=== PATIENT | male | born 1975 | race Caucasian/White ===

== ENCOUNTER → 2016-10-23 | Outpatient (CLI) | payer OTHER ==
--- NOTE | 2016-10-23 18:12 | Diagnostic Imaging Report ---
EXAMINATION: Supine view of the abdomen. INDICATION: Left flank pain. History of left ureteric stone. FINDINGS: There is a 6 mm calcification seen in the left flank lateral to the L4 transverse process. This is slightly lateral to the expected course of the left ureter but may correlate with a ureteric stone. No evidence of kidney or bladder or right ureteric stone on this exam. There are advanced degenerative changes in the left hip with a deformity of the left femoral head and neck, probably related to old injury or other insult. IMPRESSION: 1. A 6 mm calcification lateral to the L4 transverse process could be a left ureteric stone. 2. Severe degenerative changes in the left hip with a deformity of the left femur head and neck, suggestive of sequela of old insult such as an old injury, infection, or avascular necrosis. Dictated by: Dictated on workstation # [id number]
== END ==
LOC: RAD 14:34
PROVIDERS: ATTEND Urology
DX: R93.8 Abnormal findings on diagnostic imaging of other specified body structures (principal); M16.12 Unilateral primary osteoarthritis, left hip; R10.32 Left lower quadrant pain
CPT/HCPCS: 74000

== ENCOUNTER 2016-10-27 09:50 | Outpatient (CLI) | payer OTHER ==
[~2016-10-27] VITALS: Ht 180.3 cm; Wt 151.0 kg
[2016-10-27] MEDS ORDERED: OXYC-465 PO (09:57)
[2016-10-27] MEDS ORDERED: TRAM50TA2 PO (09:57)
[2016-10-27] MEDS ORDERED: RT-ALBUINH IH (09:57)
[2016-10-27] MEDS ORDERED: FLUT1BLS IH (09:57)
[2016-10-27] MEDS ORDERED: TAMS0.4C98 PO (09:57)
[2016-10-27] MEDS ORDERED: OMEP40CA36 PO (09:57)
== END 2016-10-27 10:08 ==
LOC: PREOP 09:50
PROVIDERS: ATTEND Urology
DX: Z01.818 Encounter for other preprocedural examination (principal); N20.1 Calculus of ureter

== ENCOUNTER 2016-10-29 06:41 | Day surgery (SDC) | payer BC, OTHER ==
[~2016-10-29] VITALS: Ht 180.3 cm; Wt 151.0 kg
[~2016-10-29 06:41] MED LIST: FLUT1BLS IH; OMEP40CA36 PO; OXYC-465 PO; RT-ALBUINH IH; TAMS0.4C98 PO; TRAM50TA2 PO
--- NOTE | 2016-10-29 07:07 | Progress Note-Pre Operative ---
Pre-Operative Progress Note H&P Reviewed The H&P was reviewed, patient examined and no changes noted. Date Seen by Provider: Oct 29, 2016 Time Seen by Provider: 07:07 Date H&P Reviewed: Oct 29, 2016 Time H&P Reviewed: 07:07 Pre-Operative Diagnosis: LT URETERAL STONE JULIANA AYALA MD Oct 29, 2016 7:07 am
[2016-10-29] MEDS ORDERED: cefTRIAXone 1 GM (ROCEPHIN) VIAL ONE (08:09)
[2016-10-29] MEDS ORDERED: NS (IVPB) 50 ML ONE (08:10)
--- NOTE | 2016-10-29 08:17 | Diagnostic Imaging Report ---
KUB. INDICATION: Left-sided stone. Findings: There is a 5 mm calcification at the level of the left L3 transverse process, possibly representing a proximal left ureteric stone. No other calcifications to suggest stones in the urinary tract seen otherwise. Advanced degenerative changes with deformity of the head and neck of the left femur and remodeling of the hip joint and acetabulum seen. IMPRESSION: 5 mm calcification at L3 level could be a left ureteric stone. Dictated by: Dictated on workstation # [id number]
[2016-10-29] MEDS: LACTATED RINGERS 1,000 ML IV PRN ×2 (08:35→11:37)
[2016-10-29 08:38] VITALS: BP 179/97
[2016-10-29] MEDS ORDERED: cefTRIAXone 1 GM/NS 50 ML IVPB IV ONE ×2 (09:15)
[2016-10-29] MEDS ORDERED: CATHETER FLUSH 10 ML SYR IV PRN (09:15)
[2016-10-29] MEDS ORDERED: proPOfol 200 MG/20 ML (DIPRIVAN) VIAL IV ONE (09:57)
[2016-10-29] MEDS ORDERED: MIDAZOLAM 2 MG/2 ML (VERSED) VIAL ONE (09:58)
[2016-10-29] MEDS ORDERED: LIDOCAINE PF 0.5% 50 ML (XYLOCAINE) VIAL ONE (09:58)
[2016-10-29] MEDS ORDERED: DEXAMETHASONE PF 10 MG/ML (DECADRON) VIAL ONE (09:58)
[2016-10-29] MEDS ORDERED: SEVOFLURANE (ULTANE) 15 ML INHAL SOLN ONE ×3 (09:58→11:18)
[2016-10-29] MEDS ORDERED: ONDANSETRON 4 MG/2 ML (SDV) Z0FRAN ONE (09:58)
[2016-10-29] MEDS ORDERED: LACTATED RINGERS 1,000 ML IV ONE (09:58)
[2016-10-29] MEDS ORDERED: fentaNYL INJECTION 100 MCG/2 ML AMP ONE (09:58)
--- NOTE | 2016-10-29 11:14 | Progress Note-Post Operative ---
Post-Operative Progess Note Surgeon (s)/Reed Worker (s) Surgeon JULIANA AYALA MD Reed Worker: N/A Pre-Operative Diagnosis LT URETERAL STONE Post-Operative Diagnosis SAME Procedure & Operative Findings Date of Procedure 10/29/16 Procedure Performed/Findings LT ESWL FOR LT PROXIMAL URETERAL STONE Anesthesia Type GENERAL Estimated Blood Loss Estimated blood loss (mL): N/A Specimens/Packing Specimens Removed N/A Packing: N/A JULIANA AYALA MD Oct 29, 2016 11:14 am
--- NOTE | 2016-10-29 11:16 | Discharge Inst-Urology ---
Discharge Inst-Urology Discharge Medications New, Converted, or Re-newed RX: RX on Chart Patient Instructions/Follow Up Plan Please make appointment to been seen in office in 2 weeks. KUB prior to it KUB on way home Post ESWL instructions Increase oral fluids for 48 hours and then as needed. Diet and Activity as tolerated. If questions or concerns contact your physician Or seek help at emergency department. JULIANA AYALA MD Oct 29, 2016 11:16 am
[2016-10-29] MEDS ORDERED: FUROSEMIDE 40 MG/4 ML INJ (LASIX) ONE (11:18)
[2016-10-29] MEDS ORDERED: ONDANSETRON 4 MG/2 ML (SDV) Z0FRAN IVP PRN (11:45)
[2016-10-29] MEDS ORDERED: morphine INJ 10 MG/ML 1ML (SYR OR VIAL) IVP PRN (11:45)
[2016-10-29 12:35] VITALS: BP 136/78
[2016-10-29] MEDS ORDERED: NITR-65 PO (12:52)
[2016-10-29] MEDS ORDERED: TAMS0.4C98 PO (12:52)
[2016-10-29] MEDS ORDERED: HYDR-3876 PO (12:52)
[2016-10-29 13:05] VITALS: BP 137/90
[2016-10-29 13:35] VITALS: BP 148/97
[2016-10-29 13:45] VITALS: BP 148/97
--- NOTE | 2016-10-29 13:55 | Diagnostic Imaging Report ---
INDICATION: Post lithotripsy. FINDINGS: The previously seen calcification in the left flank region is questionably seen on the current study at L3 level on the left side. This is projecting near interface of 2 bowel loops and vague density seen at the current exam could be artifactual. No other calcifications identified. Advanced degenerative changes and deformity in the left hip again noted. IMPRESSION: Faint density measuring 5 mm at the left L3 transverse process level is questioned to correlate with the previously suspected proximal left ureteric stone. It has overlying bowel and could be artifactual however. Dictated by: Dictated on workstation # [id number]
--- NOTE | 2016-10-30 11:12 | OPERATIVE REPORT ---
PROCEDURE PHYSICIAN: JULIANA AYALA DATE OF PROCEDURE: 10/29/2016 PREOPERATIVE DIAGNOSIS: Left proximal ureteral stone. POSTOPERATIVE DIAGNOSIS: Left proximal ureteral stone. OPERATION: Left ESWL. SURGEON: Dr. Ayala. ANESTHESIA: General. COMPLICATIONS: None. PROCEDURE: Under satisfactory general anesthesia, the patient supine position on the ESWL table, the left ureteral stone was localized of course with some difficulty because of the size of the patient and the size of the stone. However, it is well localized by fluoroscopy. Shocks were delivered KV of 6. A total of 2000 shocks, I was unable to see the stone anymore. Hopefully fragmented well. The patient received 30 mg of Toradol and 40 mg of Lasix at the end of the procedure. He tolerated the procedure and anesthesia well and was sent to recovery room in stable condition. Job ID: [id number] Dictated Date: 10/29/2016 11:27:25 [place] [employer]lower Date: 10/30/2016 10:52:39 / deepak
== END 2016-10-29 13:45 | disposition home or self-care (01) ==
LOC: SDC 06:41
PROVIDERS: ATTEND Urology
DX: N20.1 Calculus of ureter (principal); Z11.2 Encounter for screening for other bacterial diseases; J44.9 Chronic obstructive pulmonary disease, unspecified; F17.210 Nicotine dependence, cigarettes, uncomplicated; K21.9 Gastro-esophageal reflux disease without esophagitis; E66.01 Morbid (severe) obesity due to excess calories; Z68.42 Body mass index [BMI] 45.0-49.9, adult
CPT/HCPCS: 74000; 87081

== ENCOUNTER → 2016-11-12 | Outpatient (CLI) | payer OTHER ==
[~2016-11-12] MED LIST changes: +HYDR-3876 PO; +NITR-65 PO
--- NOTE | 2016-11-12 15:27 | Diagnostic Imaging Report ---
EXAMINATION: Supine view of the abdomen. INDICATION: Right ureteric stone. FINDINGS: When compared to 10/29/2016, the previously seen calcification in the left flank is not clearly identified. There is no definitive urinary tract stone seen at this time. An unremarkable bowel gas pattern is seen. IMPRESSION: No definite urinary tract stone is seen. Dictated by: Dictated on workstation # [id number]
== END ==
LOC: RAD 14:37
PROVIDERS: ATTEND Urology
DX: N20.1 Calculus of ureter (principal)
CPT/HCPCS: 74000

== ENCOUNTER → 2019-08-12 | Outpatient (CLI) | payer MEDICARE ==
[~2019-08-12] MED LIST changes: +OMEP40CA27 PO; -OMEP40CA36 PO; -TAMS0.4C98 PO; +TMSL.4C PO; -TRAM50TA2 PO; +TRM50T PO
[2019-08-12 07:59] LABS: HEMATOCRIT 52 % (40-54); HEMOGLOBIN 17.1 G/DL (13.3-17.7); MEAN CORPUSCULAR HEMOGLOBIN 30 PG (25-34); MEAN CORPUSCULAR HGB CONC 33 G/DL (32-36); MEAN CORPUSCULAR VOLUME 91 FL (80-99); WHITE BLOOD COUNT 8.8 10^3/uL (4.3-11.0)
[2019-08-12 08:00] LABS: BASOPHILS # (AUTO) 0.1 10^3/uL (0.0-0.1); BASOPHILS % (AUTO) 1 % (0-10); EOSINOPHILS # (AUTO) 0.4 10^3/uL (0.0-0.3); EOSINOPHILS % (AUTO) 5 % (0-10); LYMPHOCYTES # (AUTO) 1.8 X 10^3 (1.0-4.0); LYMPHOCYTES % (AUTO) 21 % (12-44); MEAN PLATELET VOLUME 10.2 FL (7.4-10.4); MONOCYTES # (AUTO) 0.8 X 10^3 (0.0-1.0); MONOCYTES % (AUTO) 9 % (0-12); NEUTROPHILS # (AUTO) 5.7 X 10^3 (1.8-7.8); NEUTROPHILS % (AUTO) 64 % (42-75); PLATELET COUNT 233 10^3/uL (130-400); RED CELL DISTRIBUTION WIDTH 14.1 % (10.0-14.5)
[2019-08-12 08:11] LABS: CARBON DIOXIDE 26 MMOL/L (21-32); CHLORIDE 101 MMOL/L (98-107); POTASSIUM 4.6 MMOL/L (3.6-5.0); SODIUM 140 MMOL/L (135-145)
[2019-08-12 08:12] LABS: ALANINE AMINOTRANSFERASE 22 U/L (0-55); ALBUMIN 4.3 GM/DL (3.2-4.5); ALKALINE PHOSPHATASE 72 U/L (40-136); BILIRUBIN,TOTAL 0.6 MG/DL (0.1-1.0); BUN/CREATININE RATIO 17; CALCIUM 9.5 MG/DL (8.5-10.1); CREATININE SERUM 0.95 MG/DL (0.60-1.30); GFR ESTIMATED > 60; GLUCOSE 87 MG/DL (70-105)
[2019-08-12 15:18] LABS: CHOLESTEROL 220 MG/DL (< 200); HDL CHOLESTEROL 42 MG/DL (40-60); TRIGLYCERIDES 58 MG/DL (<150); VLDL CHOLESTEROL 12 MG/DL (5-40)
== END ==
LOC: LAB FS 07:32
PROVIDERS: ATTEND Family Medicine
DX: Z98.84 Bariatric surgery status (principal)
CPT/HCPCS: 36415; 80053; 80061; 82607; 82652; 85025

== ENCOUNTER → 2020-07-20 | Outpatient (CLI) | payer MEDICARE ==
[~2020-07-20] MED LIST changes: -HYDR-3876 PO; +HYDR-3920 PO; -OXYC-465 PO; +OXYC-556 PO
[2020-07-20 10:12] LABS: HEMOGLOBIN 17.2 G/DL (13.3-17.7); MEAN PLATELET VOLUME 10.2 FL (7.4-10.4); WHITE BLOOD COUNT 7.5 10^3/uL (4.3-11.0)
[2020-07-20 10:50] LABS: BUN/CREATININE RATIO 20; CARBON DIOXIDE 23 MMOL/L (21-32); CHLORIDE 106 MMOL/L (98-107); CREATININE SERUM 0.81 MG/DL (0.60-1.30); GFR ESTIMATED > 60; POTASSIUM 4.4 MMOL/L (3.6-5.0); SODIUM 137 MMOL/L (135-145)
[2020-07-20 10:51] LABS: ALANINE AMINOTRANSFERASE 33 U/L (0-55); ALBUMIN 4.3 GM/DL (3.2-4.5); ALKALINE PHOSPHATASE 77 U/L (40-136); BILIRUBIN,TOTAL 0.5 MG/DL (0.1-1.0); CALCIUM 9.3 MG/DL (8.5-10.1); GLUCOSE 87 MG/DL (70-105); TOTAL PROTEIN 7.4 GM/DL (6.4-8.2)
[2020-07-20 15:06] LABS: CHOLESTEROL 218 MG/DL (< 200); HDL CHOLESTEROL 47 MG/DL (40-60); TRIGLYCERIDES 64 MG/DL (<150); VLDL CHOLESTEROL 13 MG/DL (5-40)
== END ==
LOC: LAB FS 09:24
PROVIDERS: ATTEND Family Medicine
DX: Z00.00 Encounter for general adult medical examination without abnormal findings (principal); R53.82 Chronic fatigue, unspecified
CPT/HCPCS: 36415; 80053; 80061; 82306; 82607; 85027

== ENCOUNTER 2021-04-18 11:01 | Outpatient (CLI) | payer MEDICARE ==
[~2021-04-18] VITALS: Ht 180.3 cm; Wt 156.5 kg
[~2021-04-18 11:01] MED LIST changes: +ACETAMINOPHEN 500 MG TAB (TYLENOL) PO PRN; +EPINEPHrine INJECTION 1 MG/ML AMP IM PRN; -OMEP40CA27 PO; +OMEP40CA6 PO; +ONDANSETRON 4 MG/2 ML (SDV) Z0FRAN IV PRN; +SOTROVIMAB 500 MG/NS 100 ML IVPB IV ONE; +diphenhydrAMINE 50 MG/ML INJ (BENADRYL) IV PRN
[2021-04-18 11:07] VITALS: BP 135/74
[2021-04-18 12:26] VITALS: BP 124/77
== END 2021-04-18 12:53 | disposition home or self-care (01) ==
LOC: INFUSION 11:01
PROVIDERS: ATTEND Family Medicine
DX: U07.1 COVID-19 (principal)

== ENCOUNTER → 2021-07-05 | Outpatient (CLI) | payer MEDICARE ==
[~2021-07-05] MED LIST changes: -ACETAMINOPHEN 500 MG TAB (TYLENOL) PO PRN; -EPINEPHrine INJECTION 1 MG/ML AMP IM PRN; -ONDANSETRON 4 MG/2 ML (SDV) Z0FRAN IV PRN; -SOTROVIMAB 500 MG/NS 100 ML IVPB IV ONE; -diphenhydrAMINE 50 MG/ML INJ (BENADRYL) IV PRN
--- NOTE | 2021-07-05 08:46 | Diagnostic Imaging Report ---
INDICATION: Chronic left shoulder pain. TIME OF EXAM: 8:33 AM. FINDINGS: A BB marker was placed on the top of the left shoulder at an area of palpable abnormality. There is a prominent spur projected cephalad at the distal aspect of the clavicle which could account for the palpable abnormality. The acromioclavicular alignment is normal. The acromiohumeral space is normal. The glenohumeral alignment is normal. No fracture or dislocation is seen. IMPRESSION: No acute bony abnormality is identified. There is a prominent osteophyte of the distal clavicle, as described. Dictated by: Dictated on workstation # [id number]
[2021-07-05 09:51] LABS: ALBUMIN 4.2 GM/DL (3.2-4.5); BILIRUBIN,TOTAL 0.4 MG/DL (0.1-1.0); CALCIUM 9.4 MG/DL (8.5-10.1); POTASSIUM 4.5 MMOL/L (3.6-5.0); TOTAL PROTEIN 7.5 GM/DL (6.4-8.2)
== END ==
LOC: RAD FS 08:23
PROVIDERS: ATTEND Family Medicine
DX: M25.512 Pain in left shoulder (principal); E78.5 Hyperlipidemia, unspecified; E55.9 Vitamin D deficiency, unspecified; L29.9 Pruritus, unspecified
CPT/HCPCS: 36415; 73030; 80053; 80061; 82306

== ENCOUNTER → 2021-11-05 | Outpatient (CLI) | payer MEDICARE ==
[2021-11-06 15:17] LABS: BILIRUBIN,URINE NEGATIVE (NEGATIVE); CLARITY,URINE SL CLOUDY; COLOR,URINE YELLOW; GLUCOSE, URINE (UA) NEGATIVE (NEGATIVE); KETONES,URINE NEGATIVE (NEGATIVE); LEUKOCYTE ESTERASE ,URINE NEGATIVE (NEGATIVE); NITRITE,URINE NEGATIVE (NEGATIVE); PROTEIN,URINE NEGATIVE (NEGATIVE)
[2021-11-06 15:26] LABS: BACTERIA,URINE NEGATIVE /HPF; RBC,URINE 0-2 /HPF; SQUAMOUS EPITHELIAL CELL,UR 0-2 /HPF; WBC,URINE 0-2 /HPF
== END ==
LOC: LABNPT 15:05
PROVIDERS: ATTEND Registered Nurse Emergency
DX: Z23 Encounter for immunization (principal); Z04.9 Encounter for examination and observation for unspecified reason; R31.9 Hematuria, unspecified
CPT/HCPCS: 81000

== ENCOUNTER → 2022-05-20 | Outpatient (CLI) | payer MEDICARE ==
[~2022-05-20] MED LIST changes: +ALBU8.5H6 IH; -RT-ALBUINH IH
--- NOTE | 2022-05-20 16:39 | Diagnostic Imaging Report ---
INDICATION: Left shoulder pain. TECHNIQUE: AP, oblique, and transscapular views of the left shoulder are obtained. FINDINGS: No fracture or acute bony abnormality seen. Glenohumeral joint is unremarkable. AC joint shows degenerative change with superior spurring. IMPRESSION: No acute abnormality of the left shoulder. Degenerative change of the AC joint with superior spurring. Dictated by: Dictated on workstation # [id number]
== END ==
LOC: RAD FS 10:21
PROVIDERS: ATTEND Family Medicine
DX: M25.812 Other specified joint disorders, left shoulder (principal); M19.011 Primary osteoarthritis, right shoulder; M77.9 Enthesopathy, unspecified
CPT/HCPCS: 73030